=== PATIENT | male | born 1995 | race African-American/Black ===

== ENCOUNTER 2018-06-19 07:52 | Emergency (ER) | payer MEDICAID, OTHER ==
[~2018-06-19] VITALS: Ht 165.1 cm; Wt 67.0 kg
[2018-06-19] MEDS ORDERED: IBUPROFEN 600MG TABLET PO ONE (08:45)
[2018-06-19 09:50] VITALS: BP 107/66
== END 2018-06-19 09:56 | disposition home or self-care (01) ==
LOC: ER 08:02
DX: H66.91 Otitis media, unspecified, right ear (principal); J06.9 Acute upper respiratory infection, unspecified; S49.91XA Unspecified injury of right shoulder and upper arm, initial encounter; F17.200 Nicotine dependence, unspecified, uncomplicated; J45.909 Unspecified asthma, uncomplicated; X58.XXXA Exposure to other specified factors, initial encounter; Y93.9 Activity, unspecified; Y92.9 Unspecified place or not applicable; Z88.0 Allergy status to penicillin; Z91.040 Latex allergy status
CPT/HCPCS: 73030; 99283; Z7610